=== PATIENT | male | born 1950 | race Two or more races ===

== ENCOUNTER → 2017-01-10 15:17 | Outpatient (CLI) | payer BC | END | disposition home or self-care (01) | LOC: D.RAD 15:17 | DX: J20.9 Acute bronchitis, unspecified (principal) ==

== ENCOUNTER → 2018-09-21 11:34 | Outpatient (CLI) | payer MEDICARE, BC | END | disposition home or self-care (01) | LOC: D.LABREF 11:34 | PROVIDERS: ATTEND Orthopaedic Surgery | DX: M17.11 Unilateral primary osteoarthritis, right knee (principal); Z11.8 Encounter for screening for other infectious and parasitic diseases ==

== ENCOUNTER 2018-09-22 13:09 | Inpatient (IN) | payer MEDICARE, BC ==
[~2018-09-22] VITALS: Ht 177.8 cm; Wt 98.6 kg
[2018-10-03] MEDS ORDERED: LISINOPRIL5 MG PO (12:54)
[2018-10-03] MEDS ORDERED: NORVASC5 MG PO (12:55)
[2018-10-03] MEDS ORDERED: CARDURA8 MG PO (12:55)
[2018-10-03] MEDS ORDERED: APRISO0.375 GM PO (12:56)
[2018-10-03] MEDS ORDERED: MAXZIDE 75/501 TAB PO (12:57)
[2018-10-03] MEDS ORDERED: LIPITOR20 MG PO (12:57)
[2018-10-03] MEDS ORDERED: CO Q-10100 MG (12:59)
[2018-10-03] MEDS ORDERED: FLUNISOLIDE29 MCG NASAL (13:01)
[2018-10-04 11:13] LABS: BASOPHILS 0.2 % (0-2); EOSINOPHILS 0.4 % (0-7); HEMATOCRIT 41.6 % (42.0-54.0); HEMOGLOBIN 14.6 g/dL (13.5-17.5); IMMATURE GRANULOCYTES 0.4 % (0-5); LYMPHOCYTES 23.5 % (15-50); MCH 31.5 pg (26.0-34.0); MCHC 35.1 g/dL (31.0-37.0); MCV 89.7 fL (80.0-100.0); MEAN PLATELET VOLUME 10.1 fL (7.4-10.4); MONOCYTES 8.8 % (2-11); NEUTROPHILS 66.7 % (40-80); PLATELET COUNT 182 10x3/uL (130-400); RBC 4.64 10x6/uL (4.20-6.10); RDW 14.1 % (11.5-14.5); WBC 9.1 10x3/uL (4.8-10.8)
[2018-10-04 11:22] LABS: APTT 29.9 SECONDS (22.8-39.4); PROTIME 12.7 SECONDS (11.6-15.0)
[2018-10-04 11:23] LABS: CALC OSMOLALITY 278 mosm/kg (275-300); CALCIUM 8.8 mg/dL (8.5-10.1); CARBON DIOXIDE 28.5 mmol/L (21.0-32.0); CHLORIDE - SERUM 102 mmol/L (98-107); CREATININE - SERUM 0.9 mg/dL (0.6-1.3); GLUCOSE 103 mg/dL (74-106); POTASSIUM - SERUM 3.4 mmol/L (3.5-5.1); SODIUM 140 mmol/L (136-145); UREA NITROGEN 12 mg/dL (7-18); eGFR NON AFRICAN AMERICAN 90 mL/min (90-120)
[2018-10-04 11:28] LABS: APPEARANCE CLEAR (CLEAR); BILIRUBIN NEGATIVE (NEGATIVE); COLOR YELLOW (YELLOW); GLUCOSE NEGATIVE (NEGATIVE); KETONE NEGATIVE (NEGATIVE); NITRITE NEGATIVE (NEGATIVE); PROTEIN NEGATIVE (NEGATIVE); UROBILINOGEN NORMAL (NORMAL)
[2018-10-10] VITALS (11 sets, daily range): BP systolic 111–128; BP diastolic 64–92; Ht 177.8 cm; Wt 98.6 kg
--- NOTE | 2018-10-10 11:11 | NUR ---
UPDATED FABIOLA OF PTS STATUS AND NEW ROOM NUMBER [id number]. ALL QUESTIONS ANSWERED.
--- NOTE | 2018-10-10 11:30 | NUR ---
PT RECIEVED FROM RECOVERY VIA BED TO 2210 AWAKE ALERT AND ORIENTED TO PERSON PLACE TIME AND SITUATION. REPORTS PAIN AT THIS TIME 05/21. IV TO LEFT FOREARM WITH LR @ 50ML/HR INFUSING VIA PUMP. SITE WITHOUT REDNESS OR EDEMA. CEDRIC WRAP TO RIGHT LEG C/D/I ICE PACK IN PLACE. AT BEDSIDE. ORIENTED TO ROOM, BED CONTROLS AND CL. DENIES FURTHER NEEDS AT THIS TIME. CL WITHIN REACH. ENCOURAGED TO CALL WITH NEEDS.
--- NOTE | 2018-10-10 13:40 | NUR ---
PT RESTING IN BED WITH EYES CLOSED. OPENS SPONTANEOUSLY UPON STAFF ENTERING ROOM. NO ACUTE DISTRESS NOTED AT THIS TIME. DENIES NEEDS. CL WITHIN REACH.
--- NOTE | 2018-10-10 14:01 | OP ---
PATIENT NAME: JORDY SANDOVAL JR MEDICAL RECORD: [id number] :54 LOCATION:[id number] ADMISSION DATE:10/10/18 SURGEON: GUILLERMO HERNANDEZ DO DATE OF OPERATION: 10/10/2018 PROCEDURE PERFORMED: Right total knee arthroplasty. PREOPERATIVE DIAGNOSIS: Right knee osteoarthritis. POSTOPERATIVE DIAGNOSIS: Right knee osteoarthritis. INDICATIONS: Mr. Sandoval is a 67-year-old male who has been treated conservatively up until this point for right knee osteoarthritis. He has severe osteoarthritis and has noted continued pain and collapse of the medial side of his knee going into varus. He has tried injections and home physical therapy to no avail. He wants something done surgically. I informed him of the risks including infection, bleeding, damage to nerves and vessels, need for further surgery, blood clots, and even and he was aware of that and signed the consent. SURGEON: Guillermo Hernandez DO MUSEUM ATTENDANT: ISAIAS Johnson, he assisted with closing and retracting. DESCRIPTION OF PROCEDURE: The patient received a block by anesthesia preoperative area. He was taken to the operative suite, laid in supine position and given general anesthetic, LMA was placed, given a gram of TXA, 2 grams of Ancef and 80 mg of gentamicin preoperatively. The right lower extremity was prepped and draped in sterile fashion. Timeout was performed and everyone was in agreeance with the correct side, site, patient and procedure. The incision was then marked out and then covered in Ioban. The incision was then made over the marked out incision in the anterior knee. Careful dissection was made down to the capsule itself. A fresh 10 blade was used in the medial parapatellar approach to the capsule and then the patella was everted. Part of the fat pad was removed. The patella was then milled down for implant. Once that was completed, the femur was exposed and the ACL was removed and the drill was used to go into the canal of the femur. The distal femur cutting guide was then put in and a distal femur was cut. The proximal tibia was then measured and cut as well and the bone was then removed. The knee was then brought in extension. Lamina mica spreader was used to remove the menisci and any bleeding coagulated, any bone that was left in the tibia was removed at that time as well. The extension block was then put in and fit very nicely. The knee was then flexed up and the femur was measured to be a 70. The 4-in-1 cutting block was then put on after the sky wing was used to ensure there was no notching. The 4-in-1 cutting block was then put on and pinned into place and the femur was cut. The bone was removed and then the trial was impacted into place and the tibial tray was floated in and ranged. Rotation was then marked. The patella was then sized to be 34 and drilled, and the lug holes were drilled in the femur. All the trials were then removed. The tibia was exposed and measured to be 79. A cruciate tibia was then drilled and punched and extra holes were then punched in the tibia. The cement was then mixed. Cement was placed on the tibial implant, and the tibia and femur were then thoroughly irrigated and dried, and the cement was placed on the tibia as well. The implant was then impacted into place. Excess cement was removed. The femur was then impacted on and a poly was put in between them and held out in extension. Cement was then put on the patella OPERATIVE REPORT [id number] JORDY SANDOVAL JR after being cleaned and on the patella implant it was squeezed into place. Excess cement was removed. The knee was then thoroughly irrigated and the excess cement was removed at that time. Once cement had dried, on the lateral side of the femur, there was a small gap at the distal part and some bone graft was used from the cut bone and stuffed in the small gap between the femur and the implant. The rest of the cut on the femur was well fixed and secured on the implant. After that was completed, the knee was sized for the poly to a 14. This fit very well and had no varus valgus laxity in extension or flexion and a locking mechanism was then put in. Surgicel powder and vancomycin and tobramycin powder were then placed in the knee. The capsule was then closed with #2 Vicryl in a [id number]-[id number] fashion. The skin was then closed by Florian Reyez with 2-0 Vicryl in an inverted interrupted fashion and a ZipLine was then placed on the knee, Adaptic, 4 x 4s, ABD, Webril and Jim wrap were then placed on the knee, SHARONA hose stocking was placed up to the knee. The patient was awakened and taken to recovery in stable condition. Blood loss was 200 mL. COMPLICATIONS: None. TRANSINT:[id number] Voice Confirmation ID: [id number] DOCUMENT ID: [id number] GUILLERMO HERNANDEZ DO at 1401 CC: [id number] DICTATION DATE: 10/10/18 1042 PRESCHOOL DIRECTOR: 10/10/18 1128 ADM IN [facility] [id number] [place] [address]
--- NOTE | 2018-10-10 15:44 | MORECARE ---
CASE MANAGEMENT DISCHARGE SUMMARY PATIENT: JORDY CALDERON JR UNIT: [id number] ADM DATE: 10/10/18 AGE: 67 : 52 SEX: M ROOM/BED: D.2211 AUTHOR: ROSELYN HART PHYSICIAN: REFERRING PHYSICIAN: CHIARA HERNANDEZ DO DATE OF SERVICE: 10/10/18 Discharge Plan Patient Name: JORDY CALDERON Facility: [facility]:[place] : 1950 Planned Disposition: Home or Self Care Anticipated Discharge Date: Discharge Date: Expected LOS: Initial Reviewer: [email or web address] Initial Review Date: 10/10/2018 Generated: 10/10/18 4:44 pm DCP- Discharge Planning Updated by [email or web address]: rCistina Borden on 10/10/18 2:[address] Patient Name: JORDY CALDERON Admission Status: Urgent Accout number: [id number] Admission Date: 10-10-2018 : 1950 Admission Diagnosis:UNILATERAL PRIMARY OSTEOARTHRITIS, RIGHT Attending: CHIARA HERNANDEZ Current LOS: 1 Anticipated DC Date: Planned Disposition: Home or Self Care Primary Insurance: MEDICARE A & B Discharge Planning Comments: CM met with patient to complete initial dc planning assessment. CM educated patient on the CM role and verbal consent given by patient to complete assessment. Patient lives at home with his and mother where he is independent with his care. At discharge patient plans to return home and feels this is a safe discharge. CM discussed availability of home health, rehab services, and medical equipment. He would like to do his OP PT at [facility]. I called and set up the appointment for Tuesdayoctober 16 at 3:30pm. I spoke with Amalia and faxed over order. He has a walker, BSC and CPM at his home that Dr Hernandez has set up . Patient denied known discharge needs at this time. CM will continue to follow and will assist as needed with dc plans/needs. Vinyl Flooring Installer: Cristina Borden DCPIA - Discharge Planning Initial Assessment Updated by [email or web address]: Cristina Borden on 10/10/18 3:40 pm * Is the patient Alert and Oriented? Yes * How many steps to enter\exit or inside your home? RAMP * PCP URIAH * Pharmacy [facility] * Preadmission Environment Home with Family * ADLs Independent * Equipment Bedside Commode Rolling Walker Walker * Other Equipment CPM * List name and contact numbers for known caregivers / representatives who currently or will assist patient after discharge: CARLOS EDUARDO () [phone] * Verbal permission to speak to the caregivers and representatives has been obtained from the patient. N/A * Community resources currently utilized None * Additional services required to return to the preadmission environment? Yes * Can the patient safely return to the preadmission environment? No * Has this patient been hospitalized within the prior 30 days at any hospital? Yes External Providers External Provider: Rober and Juan Daniel GREENE Next Contact Date: Service Request Date: Service Type: Resolution: Reviewer: Comments: Patient Name: JORDY CALDERON Page 80115 at 1544 All edits/amendments must be made on the electronic document DICTATION DATE: 10/10/181543 RADIOLOGY SUPERVISOR: TRACE 10/10/18 1544 RPT#: [id number] DC DATE: STATUS: ADM IN [facility] [address] [place] [address] END OF REPORT
--- NOTE | 2018-10-10 18:10 | NUR ---
CPM PLACED TO RIGHT LOWER EXTREMITY. PT VOICES COMFORT TO CPM BEING IN PLACE. INSTRUCTED PT ON TIME FOR REMOVAL OF CPM. PT DENIES QUESTIONS OR CONCERNS AT THIS TIME. CL WITHIN REACH. ENCOURAGED TO CALL WITH NEEDS.
--- NOTE | 2018-10-10 19:34 | NUR ---
UP IN BED WITH CPM ON, LEFT FA WITH 1/2 NS RUNNING AT 150 PATENT. DENIES PAIN AT THIS TIME, VOICED UNDERSTANDING TO CALL FOR ANY NEEDS. WILL NOTE ANY CHANGE.
--- NOTE | 2018-10-11 02:49 | NUR ---
I have reviewed this patient and I concur with the Shift Assessment completed by the Licensed Practical Nurse today this shift.
[2018-10-11 05:17] LABS: BASOPHILS 0.1 % (0-2); EOSINOPHILS 0 % (0-7); HEMOGLOBIN 12.3 g/dL (13.5-17.5); IMMATURE GRANULOCYTES 0.2 % (0-5); LYMPHOCYTES 7.3 % (15-50); MCH 31.7 pg (26.0-34.0); MCHC 35.1 g/dL (31.0-37.0); MCV 90.2 fL (80.0-100.0); MEAN PLATELET VOLUME 10.1 fL (7.4-10.4); MONOCYTES 10.8 % (2-11); NEUTROPHILS 81.6 % (40-80); PLATELET COUNT 174 10x3/uL (130-400); RBC 3.88 10x6/uL (4.20-6.10); RDW 14.6 % (11.5-14.5); WBC 12.2 10x3/uL (4.8-10.8)
--- NOTE | 2018-10-11 05:22 | NUR ---
REQUESTS PAIN MED PRIOR TO CPM, MEDICATION GIVEN PER ORDERS. DENIES ANY FURTHER NEEDS. WILL NOTE CHANGE.
[2018-10-11 05:26] LABS: CALC OSMOLALITY 279 mosm/kg (275-300); CALCIUM 7.9 mg/dL (8.5-10.1); CARBON DIOXIDE 29.2 mmol/L (21.0-32.0); CHLORIDE - SERUM 103 mmol/L (98-107); CREATININE - SERUM 0.9 mg/dL (0.6-1.3); GLUCOSE 136 mg/dL (74-106); MAGNESIUM - SERUM 1.9 mg/dL (1.8-2.4); POTASSIUM - SERUM 4.1 mmol/L (3.5-5.1); SODIUM 139 mmol/L (136-145); UREA NITROGEN 12 mg/dL (7-18); eGFR NON AFRICAN AMERICAN 90 mL/min (90-120)
--- NOTE | 2018-10-11 07:31 | NUR ---
PT RESTING IN BED. DENIES ANY NEEDS. ON CPM. NO S/S OF ACUTE DISTRESS. CL IN PLACE.
[2018-10-11 08:55] VITALS: BP 139/78
--- NOTE | 2018-10-11 09:15 | NUR ---
IV LEAKING. DC WITH TIP INTACT. PT REFUSED TO RESITE. NO S/S OF ACUTE DISTRESS. CL IN PLACE.
[2018-10-11 13:45] LABS: APPEARANCE CLEAR (CLEAR); COLOR YELLOW (YELLOW); SPECIFIC GRAVITY 1.015 (1.005-1.020)
[2018-10-11 13:46] LABS: BACTERIA FEW /hpf (NONE SEEN); BILIRUBIN NEGATIVE (NEGATIVE); EPITHELIAL CELLS OCC /hpf (0-5); GLUCOSE NEGATIVE (NEGATIVE); KETONE NEGATIVE (NEGATIVE); NITRITE NEGATIVE (NEGATIVE); PROTEIN NEGATIVE (NEGATIVE); RED CELLS - URINE 0-5 /hpf (0-5); UROBILINOGEN NORMAL (NORMAL)
[2018-10-11 13:57] VITALS: BP 136/81
[2018-10-11 16:24] VITALS: BP 129/78
--- NOTE | 2018-10-11 18:31 | NUR ---
PT RESTING IN BED. PT UP TRYING TO GO TO THE BATHROOM AND HAVE BM. NO S/S OF ACUTE DISTRESS. CL IN PLACE.
--- NOTE | 2018-10-11 18:36 | NUR ---
CPM ON. NO S/S OF ACUTE DISTRESS. CL IN PLACE.
--- NOTE | 2018-10-11 19:32 | NUR ---
IN BED WITH TV ON, CPM RUNNING. STATES HIS ABDOMEN IS UNCOMFORTABLE DUE TO NEED FOR BOWEL MOVEMENT, BUT DOES NOT WANT TO BE TREATED UNTIL HE IS ABLE TO GET UP FOR THE TOILET. WILL NOTE ANY CHANGE.
[2018-10-11 21:15] VITALS: BP 123/63
--- NOTE | 2018-10-12 00:32 | NUR ---
requested pain medication for level 5/10, med given per orders. will note any change.
[2018-10-12 01:38] VITALS: BP 128/66
--- NOTE | 2018-10-12 05:02 | NUR ---
REQUESTED PAIN MED BEFORE CPM, GIVEN PER ORDERS. WILL NOTE ANY CHANGE. PASSED SOME FLATULENCE THIS SHIFT, BUT NO BM PRESENT.
[2018-10-12 05:11] VITALS: BP 130/73
[2018-10-12 05:21] LABS: BASOPHILS 0.2 % (0-2); EOSINOPHILS 0.2 % (0-7); HEMATOCRIT 33.7 % (42.0-54.0); HEMOGLOBIN 11.6 g/dL (13.5-17.5); IMMATURE GRANULOCYTES 0.4 % (0-5); LYMPHOCYTES 17.8 % (15-50); MCH 30.8 pg (26.0-34.0); MCHC 34.4 g/dL (31.0-37.0); MCV 89.4 fL (80.0-100.0); MEAN PLATELET VOLUME 10.2 fL (7.4-10.4); MONOCYTES 13.9 % (2-11); NEUTROPHILS 67.5 % (40-80); PLATELET COUNT 159 10x3/uL (130-400); RBC 3.77 10x6/uL (4.20-6.10); RDW 14.5 % (11.5-14.5); WBC 9.2 10x3/uL (4.8-10.8)
[2018-10-12 05:29] LABS: CALC OSMOLALITY 273 mosm/kg (275-300); CALCIUM 8.1 mg/dL (8.5-10.1); CARBON DIOXIDE 29.5 mmol/L (21.0-32.0); CHLORIDE - SERUM 101 mmol/L (98-107); CREATININE - SERUM 0.9 mg/dL (0.6-1.3); GLUCOSE 98 mg/dL (74-106); POTASSIUM - SERUM 3.5 mmol/L (3.5-5.1); SODIUM 137 mmol/L (136-145); UREA NITROGEN 12 mg/dL (7-18); eGFR NON AFRICAN AMERICAN 90 mL/min (90-120)
--- NOTE | 2018-10-12 07:41 | NUR ---
PT RESTING IN BED. PN CPM. " READY TO GOME HOME. HAD BM LAST NIGHT. NO S/S OF ACUTE DISTRESS. CL IN PLACE.
[2018-10-12] MEDS ORDERED: ELIQUIS2.5 MG PO (08:25)
[2018-10-12] MEDS ORDERED: OXYCODONE HCL5 M1 PO (08:26)
[2018-10-12] MEDS ORDERED: KEFLEX500 MG PO (08:26)
[2018-10-12 08:30] VITALS: BP 125/61
--- NOTE | 2018-10-12 10:36 | MORECARE ---
CASE MANAGEMENT DISCHARGE SUMMARY PATIENT: JORDY CALDERON JR UNIT: [id number] ADM DATE: 10/10/18 AGE: 67 : 52 SEX: M ROOM/BED: D.2211 AUTHOR: ROSELYN HART PHYSICIAN: REFERRING PHYSICIAN: CHIARA HERNANDEZ DO DATE OF SERVICE: 10/12/18 Discharge Plan Patient Name: JORDY CALDERON Facility: [facility]:[place] : 1950 Planned Disposition: Home or Self Care Anticipated Discharge Date: Discharge Date: Expected LOS: Initial Reviewer: [email or web address] Initial Review Date: 10/10/2018 Generated: 10/12/18 11:35 am Comments DCP- Discharge Planning Updated by [email or web address]: Cristina Borden on 10/12/18 9:[address] Patient Name: JORDY CALDERON Encounter No: [id number] : 1950 Primary Insurance: MEDICARE A & B Anticipated DC Date: Planned Disposition: Home or Self Care External Planned Provider: : DCP follow-up note: Patient and family in agreement with discharge plan. No changes to plan. Case management will follow and assist as needed. Cristina Borden DCP- Discharge Planning Updated by [id number]: Cristina Borden on 10/10/18 2:[address] Patient Name: JORDY CALDERON Admission Status: Urgent Accout number: [id number] Admission Date: 10-10-2018 : 1950 Admission Diagnosis:UNILATERAL PRIMARY OSTEOARTHRITIS, RIGHT Attending: CHIARA HERNANDEZ Current LOS: 1 Anticipated DC Date: Planned Disposition: Home or Self Care Primary Insurance: MEDICARE A & B Discharge Planning Comments: CM met with patient to complete initial dc planning assessment. CM educated patient on the CM role and verbal consent given by patient to complete assessment. Patient lives at home with his and mother where he is independent with his care. At discharge patient plans to return home and feels this is a safe discharge. CM discussed availability of home health, rehab services, and medical equipment. He would like to do his OP PT at [facility]. I called and set up the appointment for Tuesdayoctober 16 at 3:30pm. I spoke with Amalia and faxed over order. He has a walker, BSC and CPM at his home that Dr Hernandez has set up . Patient denied known discharge needs at this time. CM will continue to follow and will assist as needed with dc plans/needs. Pilot Boat Captain: Cristina Borden DCPIA - Discharge Planning Initial Assessment Updated by [email or web address]: Cristina Borden on 10/10/18 3:40 pm * Is the patient Alert and Oriented? Yes * How many steps to enter\exit or inside your home? RAMP * PCP URIAH * Pharmacy [facility] * Preadmission Environment Home with Family * ADLs Independent * Equipment Bedside Commode Rolling Walker Walker * Other Equipment CPM * List name and contact numbers for known caregivers / representatives who currently or will assist patient after discharge: CARLOS EDUARDO () [phone] * Verbal permission to speak to the caregivers and representatives has been obtained from the patient. N/A * Community resources currently utilized None * Additional services required to return to the preadmission environment? Yes * Can the patient safely return to the preadmission environment? No * Has this patient been hospitalized within the prior 30 days at any hospital? Yes Last DP export: 10/10/18 2:44 p Patient Name: JORDY CALDERON Page [id number] at 1036 All edits/amendments must be made on the electronic document DICTATION DATE: 10/12/18 1035 PRESS READER: TRACE 10/12/18 1035 RPT#: [id number] DC DATE: STATUS: ADM IN [facility] [address] [place] [address] END OF REPORT
--- NOTE | 2018-10-12 11:15 | NUR ---
DC INSTRUCTIONS AND EDUCATION DONE WITH PT. ALL SCRIPTS AND PAPERWORK SENT WITH PT. NO IV PRESENT. WAITING ON NO S/S OF ACUTE DISTRESS. CL IN PLACE
--- NOTE | 2018-10-12 14:28 | NUR ---
1300 PT TAKEN TO LOBBY VIA WC BY VOLUNTEER. NO S/S OF ACUTE DISTRESS. TOOK ALL BELONGINGS DOWN .
--- NOTE | 2018-10-16 11:38 | MORECARE ---
CASE MANAGEMENT DISCHARGE SUMMARY PATIENT: JORDY CALDERON JR UNIT: [id number] ADM DATE: 10/10/18 AGE: 67 : 54 SEX: M ROOM/BED: D.2211 AUTHOR: ROSELYN HART PHYSICIAN: REFERRING PHYSICIAN: CHIARA HERNANDEZ DO DATE OF SERVICE: 10/16/18 Discharge Plan Patient Name: JORDY CALDERON Facility: [facility]:[place] : 1950 Planned Disposition: Home or Self Care Anticipated Discharge Date: Discharge Date: 10/12/2018 Expected LOS: Initial Reviewer: [email or web address] Initial Review Date: 10/10/2018 Generated: 10/16/18 12:38 pm Comments DCP- Discharge Planning Updated by [email or web address]: Cristina Borden on 10/12/18 9:[address] Patient Name: JORDY CALDERON Encounter No: [id number] : 1950 Primary Insurance: MEDICARE A & B Anticipated DC Date: Planned Disposition: Home or Self Care External Planned Provider: : DCP follow-up note: Patient and family in agreement with discharge plan. No changes to plan. Case management will follow and assist as needed. Cirstina Borden DCP- Discharge Planning Updated by [email or web address]: Cristina Borden on 10/10/18 2:[address] Patient Name: JORDY CALDERON Admission Status: Urgent Accout number: [id number] Admission Date: 10-10-2018 : 1950 Admission Diagnosis:UNILATERAL PRIMARY OSTEOARTHRITIS, RIGHT Attending: CHIARA HERNANDEZ Current LOS: 1 Anticipated DC Date: Planned Disposition: Home or Self Care Primary Insurance: MEDICARE A & B Discharge Planning Comments: CM met with patient to complete initial dc planning assessment. CM educated patient on the CM role and verbal consent given by patient to complete assessment. Patient lives at home with his and mother where he is independent with his care. At discharge patient plans to return home and feels this is a safe discharge. CM discussed availability of home health, rehab services, and medical equipment. He would like to do his OP PT at [facility]. I called and set up the appointment for Tuesdayoctober 16 at 3:30pm. I spoke with Amalia and faxed over order. He has a walker, BSC and CPM at his home that Dr Hernandez has set up . Patient denied known discharge needs at this time. CM will continue to follow and will assist as needed with dc plans/needs. Mechanical Maintenance: Cristina Borden DCPIA - Discharge Planning Initial Assessment Updated by [email or web address]: Cristina Borden on 10/10/18 3:40 pm * Is the patient Alert and Oriented? Yes * How many steps to enter\exit or inside your home? RAMP * PCP URIAH * Pharmacy [facility] * Preadmission Environment Home with Family * ADLs Independent * Equipment Bedside Commode Rolling Walker Walker * Other Equipment CPM * List name and contact numbers for known caregivers / representatives who currently or will assist patient after discharge: CARLOS EDUARDO () [phone] * Verbal permission to speak to the caregivers and representatives has been obtained from the patient. N/A * Community resources currently utilized None * Additional services required to return to the preadmission environment? Yes * Can the patient safely return to the preadmission environment? No * Has this patient been hospitalized within the prior 30 days at any hospital? Yes Last DP export: 10/12/18 9:36 am Patient Name: JORDY CALDERON Page 07054 at 1138 All edits/amendments must be made on the electronic document DICTATION DATE: 10/16/18 1138 SPECIAL CLIENT BUS DRIVER: TRACE 10/16/18 1138 RPT#: [id number] DC DATE:10/12/18 STATUS: DIS IN [facility] [address] [place] [address] END OF REPORT
== END 2018-10-12 15:03 | disposition home or self-care (01) | DRG 470 ==
LOC: D.SDCHOLD 10-10 06:25 → D.MS 10-10 06:25 → D.SDCHOLD 10-10 07:00 → D.MS 10-10 11:08
PROVIDERS: Internal Medicine Nephrology; ADMIT Orthopaedic Surgery; ATTEND Orthopaedic Surgery
PROC: 0SRC0J9 Replacement of Right Knee Joint with Synthetic Substitute, Cemented, Open Approach (ICD-10-PCS; principal; 2018-10-10 08:30)
DX: M17.11 Unilateral primary osteoarthritis, right knee (principal); I10 Essential (primary) hypertension; E78.5 Hyperlipidemia, unspecified

== ENCOUNTER 2020-07-05 23:10 | Emergency (ER) | payer MEDICARE, BC ==
[~2020-07-05] VITALS: Ht 177.8 cm; Wt 100.0 kg
[~2020-07-05 23:10] MED LIST: APRISO0.375 GM PO; CARDURA8 MG PO; CO Q-10100 MG; ELIQUIS2.5 MG PO; FLUNISOLIDE29 MCG NASAL; KEFLEX500 MG PO; LIPITOR20 MG PO; LISINOPRIL5 MG PO; MAXZIDE 75/501 TAB PO; NORVASC5 MG PO; OXYCODONE HCL5 M1 PO
[2020-07-05 23:13] VITALS: Ht 177.8 cm; Wt 100.0 kg
[2020-07-05 23:51] LABS: BASOPHILS 0.4 % (0-2); EOSINOPHILS 3.3 % (0-7); HEMATOCRIT 41.7 % (42.0-54.0); HEMOGLOBIN 14.2 g/dL (13.5-17.5); IMMATURE GRANULOCYTES 0.3 % (0-5); LYMPHOCYTE ABS# 1.06 10x3/uL (1.32-3.57); LYMPHOCYTES 14.5 % (15-50); MCH 30.7 pg (26.0-34.0); MCHC 34.1 g/dL (31.0-37.0); MCV 90.1 fL (80.0-100.0); MEAN PLATELET VOLUME 11.5 fL (7.4-10.4); MONOCYTES 13.7 % (2-11); NEUTROPHIL ABS# 4.95 10x3/uL (1.78-5.38); NEUTROPHILS 67.8 % (40-80); PLATELET COUNT 150 10x3/uL (130-400); RBC 4.63 10x6/uL (4.20-6.10); RDW 13.4 % (11.5-14.5); WBC 7.3 10x3/uL (4.8-10.8)
[2020-07-05 23:59] LABS: CALC OSMOLALITY 283 mosm/kg (275-300); CALCIUM 8.6 mg/dL (8.5-10.1); CARBON DIOXIDE 28.3 mmol/L (21.0-32.0); CHLORIDE - SERUM 100 mmol/L (98-107); GLUCOSE 133 mg/dL (74-106); POTASSIUM - SERUM 3.4 mmol/L (3.5-5.1); SODIUM 139 mmol/L (136-145); UREA NITROGEN 23 mg/dL (7-18); eGFR NON AFRICAN AMERICAN 79 mL/min (90-120)
[2020-07-06 00:11] LABS: ALBUMIN 3.5 g/dL (3.4-5.0); ALKALINE PHOSPHATASE 103 U/L (30-120); ALT (SGPT) 626 U/L (10-68); BILIRUBIN - TOTAL 1.33 mg/dL (0.2-1.3); PROTEIN - SERUM 6.8 g/dL (6.4-8.2)
[2020-07-06 00:14] LABS: AMYLASE - SERUM 325 U/L (25-115); LIPASE 3386 U/L (73-393); TROPONIN-I < 0.017 ng/mL (0.000-0.060)
[2020-07-06 01:26] LABS: BILIRUBIN NEGATIVE (NEGATIVE); KETONE NEGATIVE (NEGATIVE); NITRITE NEGATIVE (NEGATIVE); UROBILINOGEN NORMAL mg/dL (< 2)
[2020-07-06 02:17] VITALS: BP 114/78
== END 2020-07-06 02:23 | disposition home or self-care (01) ==
LOC: D.ER 23:10
PROVIDERS: Family Medicine
DX: R55 Syncope and collapse (principal); K85.90 Acute pancreatitis without necrosis or infection, unspecified; I10 Essential (primary) hypertension

== ENCOUNTER → 2020-07-30 15:31 | Outpatient (CLI) | payer MEDICARE, BC ==
[2020-07-05 23:13] VITALS: BMI 31.6
[2020-07-30 16:08] LABS: ALKALINE PHOSPHATASE 72 U/L (30-120); ALT (SGPT) 42 U/L (10-68); CALC OSMOLALITY 278 mosm/kg (275-300); CALCIUM 9.3 mg/dL (8.5-10.1); CARBON DIOXIDE 25.8 mmol/L (21.0-32.0); CHLORIDE - SERUM 101 mmol/L (98-107); GLUCOSE 99 mg/dL (74-106); POTASSIUM - SERUM 3.7 mmol/L (3.5-5.1); PROTEIN - SERUM 7.3 g/dL (6.4-8.2); SODIUM 138 mmol/L (136-145); UREA NITROGEN 22 mg/dL (7-18); eGFR NON AFRICAN AMERICAN 79 mL/min (90-120)
[2020-07-30 16:09] LABS: EOSINOPHILS 5.1 % (0-7); HEMATOCRIT 43.3 % (42.0-54.0); HEMOGLOBIN 14.8 g/dL (13.5-17.5); LYMPHOCYTES 23.6 % (15-50); MCH 30.5 pg (26.0-34.0); MCHC 34.1 g/dL (31.0-37.0); MCV 89.4 fL (80.0-100.0); MEAN PLATELET VOLUME 9.2 fL (7.4-10.4); MONOCYTES 8.2 % (2-11); NEUTROPHILS 62.1 % (40-80); RBC 4.85 10x6/uL (4.20-6.10); RDW 13.7 % (11.5-14.5); WBC 9.2 10x3/uL (4.8-10.8)
[2020-07-30 16:19] LABS: PLATELET COUNT 189 10x3/uL (130-400)
[2020-07-30 17:18] LABS: ERYTHROCYTE SEDIMENTATION RATE 4 mm/hr (0-20)
== END | disposition home or self-care (01) ==
LOC: D.LAB 15:31
PROVIDERS: ATTEND Internal Medicine Gastroenterology
DX: K51.90 Ulcerative colitis, unspecified, without complications (principal)